=== PATIENT | male | born 1980 | race Caucasian/White ===

== ENCOUNTER 2016-09-19 11:08 | Emergency (ER) | payer OTHER ==
[~2016-09-19] VITALS: Ht 177.8 cm; Wt 60.0 kg
[2016-09-19 11:11] VITALS: BP 153/96; PULSE 86; RESP 24; TEMP 98.3; O2SAT 99
--- NOTE | 2016-09-19 11:59 | PD ---
HPI Chief Complaint: Pain: Acute or Chronic Time Seen by Provider: 11:59 Travel History International Travel<30 days: No Contact w/Intl Traveler<30days: No Traveled to known affect area: No History of Present Illness HPI 36-year-old male presents to emergency Department with complaint of right rib pain since Sunday after a large, metal safe pinned him up against a wall. He was able to push it off immediately that he has had right rib pain since. Pain is worse with breathing, cough, and sneezing. He denies hemoptysis, hematemesis , hematuria, hematochezia. Denies abdominal pain, nausea, vomiting. Denies shortness of breath or chest pain. Has not taken any medications or tried any treatments to alleviate his symptoms. No known relieving factors. Allergies to aloe. Has primary care provider no other modifying factors or associated signs and symptoms. PFSH Social History Tobacco Use: No Allergies-Medications (Allergen,Severity, Reaction): Uncoded Allergies: ALOE (Allergy, Severe, 09/19/16) ITCHING, HIVES Reported Meds & Prescriptions Reported Meds & Active Scripts Active Robaxin (Methocarbamol) 500 Mg Tab 500 Mg PO QID PRN Percocet (Oxycodone-Acetaminophen) 5-325 mg Tab 1-2 Tab PO Q4-6H PRN Ibuprofen 800 Mg Tab 800 Mg PO Q6HR PRN Review of Systems Except as stated in HPI: all other systems reviewed are Neg Physical Exam Narrative GENERAL: Well-nourished, well-developed male patient, in no acute distress SKIN: Warm and dry. HEAD: Atraumatic. Normocephalic. EYES: Pupils equal and round. No scleral icterus. No injection or drainage. ENT: Mucosa pink and moist. NECK: Trachea midline. CHEST: Reproducible tenderness to the right lateral rib cage at approximately the seventh and rib area; no crepitance or deformity. No retractions or use of accessory muscles. CARDIOVASCULAR: Regular rate and rhythm. No murmur appreciated. RESPIRATORY: No accessory muscle use. Clear to auscultation. Breath sounds equal bilaterally. GASTROINTESTINAL: Abdomen soft, non-tender, nondistended. Hepatic and splenic margins not palpable. Bowel sounds are active 4 quadrants. MUSCULOSKELETAL: No obvious deformities. No clubbing. No cyanosis. No edema. NEUROLOGICAL: Awake and alert. Oriented 3. No obvious cranial nerve deficits. Motor grossly within normal limits. Normal speech. Moves all extremities. 5/5 strength to all extremities. PSYCHIATRIC: Appropriate mood and affect; insight and judgment normal. Data Data Last Documented VS Vital Signs Date Time Temp Pulse Resp B/P Pulse Ox O2 Delivery O2 Flow Rate FiO2 09/19/16 11:11 98.3 86 24 153/96 99 Orders Ketorolac Inj (Toradol Inj) (09/19/16 12:00) Ribs, Uni (W/Exp Cxr-Min 3vw) (09/19/16 ) Resp Incentive Spirometry (09/19/16 ) Methocarbamol (Robaxin) (09/19/16 12:45) MDM Medical Decision Making Medical Screen Exam Complete: Yes Emergency Medical Condition: Yes Medical Record Reviewed: Yes Differential Diagnosis Rib contusion, rib fracture, crush injury Narrative Course 36-year-old male with right rib pain. No crepitance or deformity. No retractions or tachypnea. Patient is in no acute distress. Oxygen saturation is 99% on room air. Toradol ordered. Right rib x-ray chest x-ray ordered. 1227: Right rib with expiratory chest x-ray concludes Right eighth rib fracture. No pneumothorax. Incentive spirometer ordered and patient instructed on use for home. Percocet and ibuprofen prescribed for home. Patient is medically cleared and stable for discharge. Discussed reasons to return to the emergency department. Instructed patient to follow up with primary care provider. Patient agrees with treatment plan. The patients vital signs are stable and the patient is stable for outpatient follow-up and treatment. Patient discharged home, stable and in no acute distress. Diagnosis Primary Impression: Right rib fracture Qualified Code: S22.31XA - Closed fracture of one rib of right side, initial encounter Referrals: Primary Care Physician Patient Instructions: General Instructions, How to Use an Incentive Spirometer (ED), Rib Fracture (ED) Departure Forms: Tests/Procedures, Work Release Enter return to work date: Sep 26, 2016 Additional Instructions: Ibuprofen or Tylenol as directed and as needed to reduce pain Robaxin as prescribed and as needed to reduce muscle spasms Heating pad and/or ice to affected area to reduce pain Avoid aggravating activities; increase activity as tolerated Follow-up with a primary care provider Return to the emergency department immediately with worsening of symptoms Med/Other Pt SpecificInfo: Prescription(s) given Scripts Methocarbamol (Robaxin)500 Mg [id number] Mg PO QID PRN (MUSCLE SPASM) #30 TAB Ref 0 Prov:Chayo Valente 09/19/16 Oxycodone-Acetaminophen (Percocet)5-325 mg Tab1-2 Tab PO Q4-6H PRN (PAIN GREATER THAN 5) #30 TAB Ref 0 Prov:Iggy Sebastian MD 09/19/16 Ibuprofen 800 Mg [id number] Mg PO Q6HR PRN (PAIN LESS THAN 5 ON SCALE) #30 TAB Ref 0 Prov:hCayo Valente 09/19/16 Disposition: 01 DISCHARGE HOME Condition: Stable Chayo Valente Sep 19, 2016 11:59
[2016-09-19] MEDS ORDERED: KETOROLAC TROMETHAMINE 60 MG/2 ML (IM) VIAL IM ONE (12:00)
--- NOTE | 2016-09-19 12:23 | RADRPT ---
EXAM DATE/TIME: 09/19/2016 12:15 [facility] COMPARISON: No previous studies available for comparison. INDICATIONS : Right side posterior rib pain. Patient states a gun safe fell on him three days ago. MEDICAL HISTORY : None. SURGICAL HISTORY : None. ENCOUNTER: Initial ACUITY: 3 days PAIN SCORE: 7/10 LOCATION: Right posterior ribs. FINDINGS: Multiple views of the right ribs were performed. Minimal fracture right eighth rib. Expiratory view o f the chest is negative for pneumothorax. The mediastinal structures are midline. CONCLUSION: Right eighth rib fracture. No pneumothorax. Praneeth Dickey MD on September 19, 2016 at 12:17 Board Certified Radiologist. This report was verified electronically.
[2016-09-19] MEDS ORDERED: IBUP800T23 PO (12:29)
[2016-09-19] MEDS ORDERED: PERC5TAB12 PO (12:31)
[2016-09-19] MEDS ORDERED: ROBA500T PO (12:38)
[2016-09-19] MEDS ORDERED: METHOCARBAMOL 500 MG TAB PO ONE (12:45)
== END 2016-09-19 13:02 | disposition home or self-care (01) ==
LOC: NEPB 11:08
DX: S22.31XA Fracture of one rib, right side, initial encounter for closed fracture (principal); W20.8XXA Other cause of strike by thrown, projected or falling object, initial encounter; Y99.8 Other external cause status
CPT/HCPCS: 71101; 96374; 99283; J1885